=== PATIENT | male | born 1995 | race Caucasian/White ===

== ENCOUNTER 2022-10-05 05:05 | Emergency (ER) | payer BC ==
[2022-10-05] MEDS ORDERED: Pepcid 20 MG VIAL IV ONE ×2 (05:18→05:40)
[2022-10-05] MEDS ORDERED: Sodium Chloride 0.9% 1000 ML 1,000 ML IV STA (05:18)
[2022-10-05] MEDS ORDERED: PROTONIX 40 MG IV IV ONE ×2 (05:18→05:40)
[2022-10-05 05:20] VITALS: BP 122/73
--- NOTE | 2022-10-05 05:35 | ERPHSYRPT ---
- History of Present Illness Time Seen by Provider: 10/05/22 05:28 Historian: patient, family Exam Limitations: no limitations Patient Subjective Stated Complaint: pt states he has had chest pain this morning thaqt lasted 3 hours in the center of chest. pt states that after the chest pain let up he was feeling aching in the arm. pt states he has a history of hiatel hernia, but this pain felt different that the hiatel hernia pain, states he has some SOB Triage Nursing Assessment: pt is alert and oriented, states that his pain is chest is 1/10 at this time, pt is NSR on 12 lead, and on monitor. Physician History: pt had onset left chest pain radiating to shoulder this am x 3 hours but now nearly gone. Had had previous substernal diagnosed as GERD, but this is a little different. No prior CAD. No Hptn Nonsmoker. No early family Hx . no prior DVT or PE, No recent hosp or surgery, no hx cancer, but cannot perc out due to a relative and himself with an increased factor like factor V. so will check D dimer Heart score is 3 : 1 for moderately suspicious CP ( pectoral rad to shoulder/arm) 1 for family Hx 1 for EKG with early repol. 0 for age < 45 0 for neg trop Timing/Duration: today Activities at Onset: none Quality: dullness, sharpness Location: central, shoulder Chest Pain Radiation: arm Severity of Pain-Max: moderate Severity of Pain-Current: mild Modifying Factors: Improves With: nothing Associated Symptoms: denies symptoms Prior Chest Pain/Cardiac Workup: non-cardiac Nitro Today/Relief: no nitro taken today Aspirin Treatment Today: 81 mg x 4, provided by ED Allergies/Adverse Reactions: No Known Drug Allergies Allergy (Unverified 10/05/22 05:20) Hx Tetanus, Diphtheria Vaccination/Date Given: Yes Travel Risk - International Travel Have you traveled outside of the country in past 3 weeks: No - Coronavirus Screening Are you exhibiting any of the following symptoms?: No Close contact with a COVID-19 positive Pt in past 14-21 Days: No - Vaccine Status Have you recieved a Covid-19 vaccination: No - Vaccination Dates Date of 2cond Vaccination (if applicable): unknown - Review of Systems Constitutional: No Fever, No Chills Eyes: No Symptoms Ears, Nose, & Throat: No Symptoms Respiratory: No Cough, No Dyspnea Cardiac: No Chest Pain, No Edema, No Syncope Abdominal/Gastrointestinal: No Abdominal Pain, No Nausea, No Vomiting, No Diarrhea Genitourinary Symptoms: No Dysuria Musculoskeletal: No Back Pain, No Neck Pain Skin: No Rash Neurological: No Dizziness, No Focal Weakness, No Sensory Changes Psychological: No Symptoms Endocrine: No Symptoms Hematologic/Lymphatic: No Symptoms Immunological/Allergic: No Symptoms All Other Systems: Reviewed and Negative - Past Medical History Pertinent Past Medical History: Yes Other Medical History: acid reflux, hiatel hernia - Past Surgical History Past Surgical History: No - Social History Smoking Status: Never smoker Exposure to second hand smoke: No Drug Use: none Patient Lives Alone: No - Nursing Vital Signs Nursing Vital Signs: Initial Vital Signs Temperature 97.9 F 10/05/22 05:06 Pulse Rate 66 10/05/22 05:06 Respiratory Rate 18 10/05/22 05:06 Blood Pressure 122/73 10/05/22 05:06 O2 Sat by Pulse Oximetry 100 10/05/22 05:06 Pain Scale Pain Intensity 0 - Physical Exam General Appearance: no apparent distress, alert Eye Exam: PERRL/EOMI, eyes nml inspection Ears, Nose, Throat Exam: normal ENT inspection, moist mucous membranes Neck Exam: normal inspection, non-tender, supple, full range of motion Respiratory Exam: normal breath sounds, lungs clear, airway intact, No respiratory distress Cardiovascular Exam: regular rate/rhythm, normal heart sounds Gastrointestinal/Abdomen Exam: soft, No tenderness, No mass Rectal Exam: deferred Back Exam: normal inspection, No CVA tenderness, No vertebral tenderness Extremity Exam: normal inspection, normal range of motion Neurologic Exam: alert, oriented x 3, cooperative, normal mood/affect, sensation nml, No motor deficits Skin Exam: normal color, warm, dry SpO2 Interpretation: normal SpO2: 100 O2 Delivery: Room Air - Course Nursing assessment & vital signs reviewed: Yes EKG Interpreted by Me: Sinus Rhythm, NORMAL AXIS, NORMAL INTERVALS, Non-specific ST Changes, Other (early repol) - Radiology Exams Chest X-ray Interpretation: Reviewed by me, No Pneumothorax, No Infiltrates, Other (granulomata) Ordered Tests: Active Orders 24 hr Category Date Time Status EKG-ER Only STAT Care 10/05/22 05:18 Active IV Insertion STAT Care 10/05/22 05:18 Active CHEST 2 VIEWS (PA AND LAT) Stat Exams 10/05/22 05:20 Taken CBC W DIFF Stat Lab 10/05/22 05:37 Completed CMP Stat Lab 10/05/22 05:37 Completed D-DIMER QUANTITATIVE Stat Lab 10/05/22 05:48 Completed TROPONIN Q4H Lab 10/05/22 05:30 Completed TROPONIN Q4H Lab 10/05/22 09:30 Ordered TROPONIN Q4H Lab 10/05/22 13:30 Ordered Medication Summary Discontinued Medications Generic Name Dose Route Start Last Admin Trade Name Freq PRN Reason Stop Dose Admin Aspirin 324 mg 10/05/22 05:37 10/05/22 05:43 Aspirin 81 Mg Tab.Chew PO 10/05/22 05:38 324 mg STAT ONE Administration Famotidine 20 mg 10/05/22 05:18 10/05/22 05:42 Famotidine 20 Mg/1 Vial IV 10/05/22 05:19 20 mg STAT ONE Administration Famotidine Confirm 10/05/22 05:40 Famotidine 20 Mg/1 Vial Administered 10/05/22 05:41 Dose 20 mg IV .STK-MED ONE Sodium Chloride 1,000 mls @ 999 mls/hr 10/05/22 05:18 10/05/22 05:42 Sodium Chloride 0.9% 1000 Ml IV 10/05/22 06:18 999 mls/hr .Q1H1M STA Administration Sodium Chloride Confirm 10/05/22 05:41 Sodium Chloride 0.9% 1000 Ml Administered 10/05/22 05:42 Dose 1,000 mls @ ud .ROUTE .STK-MED ONE Pantoprazole Sodium 40 mg 10/05/22 05:18 10/05/22 05:42 Pantoprazole 40 Mg Vial IV 10/05/22 05:19 40 mg STAT ONE Administration Pantoprazole Sodium Confirm 10/05/22 05:40 Pantoprazole 40 Mg Vial Administered 10/05/22 05:41 Dose 40 mg IV .STK-MED ONE Lab/Rad Data: Laboratory Result Diagrams 10/05/22 05:37 10/05/22 05:37 Laboratory Results 10/05/22 10/05/22 10/05/22 Range/Units 05:48 05:37 05:37 WBC 5.1 (4.0-10.5) x10^3/uL RBC 5.25 (4.1-5.6) x10^6/uL Hgb 15.4 (12.5-18.0) g/dL Hct 45.9 (42-50) % MCV 87.4 (78-100) fL MCH 29.3 (26-32) pg MCHC 33.6 (32-36) g/dL RDW 12.5 (11.5-14.0) % Plt Count 229 (150-450) x10^3/uL MPV 10.3 (7.5-11.0) fL Gran % 48.5 (36.0-66.0) % Immature Gran % (Auto) 0.2 (0.00-0.4) % Nucleat RBC Rel Count 0.0 (0.00-0.1) % Eos # (Auto) 0.18 (0-0.5) x10^3/uL Immature Gran # (Auto) 0.01 (0.00-0.03) x10^3u/L Absolute Lymphs (auto) 1.67 (1.0-4.6) x10^3/uL Absolute Monos (auto) 0.71 (0.0-1.3) x10^3/uL Absolute Nucleated RBC 0.00 (0.00-0.01) x10^3u/L Lymphocytes % 32.9 (24.0-44.0) % Monocytes % 14.0 H (0.0-12.0) % Eosinophils % 3.6 (0.00-5.0) % Basophils % 0.8 (0.0-0.4) % Absolute Granulocytes 2.46 (1.4-6.9) x10^3/uL Basophils # 0.04 (0-0.4) x10^3/uL D-Dimer < 0.19 (0.0-0.50) mg/L Sodium 137 (137-145) mmol/L Potassium 4.0 (3.5-5.1) mmol/L Chloride 106 (98-107) mmol/L Carbon Dioxide 25 (22-30) mmol/L Anion Gap 10.2 (5-15) MEQ/L BUN 14 (9-20) mg/dL Creatinine 0.78 (0.66-1.25) mg/dL Estimated GFR > 60.0 ML/MIN Glucose 100 (74-106) mg/dL Calcium 8.7 (8.4-10.2) mg/dL Total Bilirubin 0.50 (0.2-1.3) mg/dL AST 21 (17-59) U/L ALT 17 (0-50) U/L Alkaline Phosphatase 53 (38-126) U/L Troponin I (0.000-0.034) ng/mL Serum Total Protein 7.3 (6.3-8.2) g/dL Albumin 4.4 (3.5-5.0) g/dL 10/05/22 Range/Units 05:30 WBC (4.0-10.5) x10^3/uL RBC (4.1-5.6) x10^6/uL Hgb (12.5-18.0) g/dL Hct (42-50) % MCV (78-100) fL MCH (26-32) pg MCHC (32-36) g/dL RDW (11.5-14.0) % Plt Count (150-450) x10^3/uL MPV (7.5-11.0) fL Gran % (36.0-66.0) % Immature Gran % (Auto) (0.00-0.4) % Nucleat RBC Rel Count (0.00-0.1) % Eos # (Auto) (0-0.5) x10^3/uL Immature Gran # (Auto) (0.00-0.03) x10^3u/L Absolute Lymphs (auto) (1.0-4.6) x10^3/uL Absolute Monos (auto) (0.0-1.3) x10^3/uL Absolute Nucleated RBC (0.00-0.01) x10^3u/L Lymphocytes % (24.0-44.0) % Monocytes % (0.0-12.0) % Eosinophils % (0.00-5.0) % Basophils % (0.0-0.4) % Absolute Granulocytes (1.4-6.9) x10^3/uL Basophils # (0-0.4) x10^3/uL D-Dimer (0.0-0.50) mg/L Sodium (137-145) mmol/L Potassium (3.5-5.1) mmol/L Chloride (98-107) mmol/L Carbon Dioxide (22-30) mmol/L Anion Gap (5-15) MEQ/L BUN (9-20) mg/dL Creatinine (0.66-1.25) mg/dL Estimated GFR ML/MIN Glucose (74-106) mg/dL Calcium (8.4-10.2) mg/dL Total Bilirubin (0.2-1.3) mg/dL AST (17-59) U/L ALT (0-50) U/L Alkaline Phosphatase (38-126) U/L Troponin I < 0.012 (0.000-0.034) ng/mL Serum Total Protein (6.3-8.2) g/dL Albumin (3.5-5.0) g/dL - Progress Progress: improved, re-examined Air Movement: good Progress Note: 10/05/22 06:41 pt is feeling better now with symptoms essentially resolved. he relates now that when he was having the pain it was momentary and shrp for less thatn 30 seconds rather than lasting the whole 3 hours,. I discussed his Heart score being lower risk, but that this still did not completely make his risk zero ( there still could be undetected cardiac or cardiovascular disease with risk of TX and/or ) and that he could stay and be observed if he wished in hospital but he is comfortable for DC and outpt f/u and chooses that and has the capacity with normal mental status to make that choice. Blood Culture(s) Obtained: No Antibiotics given: No Counseled pt/family regarding: lab results, diagnosis, need for follow-up, rad results - Departure Departure Disposition: Home Clinical Impression: chest pain resolved Condition: Good Critical Care Time: No Referrals: SOLOMON PIPER MD [Primary Care Provider] - Follow up/PCP as directed Instructions: Chest Pain (DC) Additional Instructions: followup with your to arrange further cardiac workup since although your score is low and risk is low , there still could be some condition, and return meantime if any further symptoms of concern. Avoid heavy exertion and sports until workup is completed.
[2022-10-05] MEDS ORDERED: BABY ASPIRIN 81 MG CHEW PO ONE (05:37)
[2022-10-05 05:40] LABS: Absolute Neutrophil Ct (ANC) 2.46 x10^3/uL (1.4-6.9); Basophil (Absolute #) 0.04 x10^3/uL (0-0.4); Eosinophil % 3.6 % (0.00-5.0); Eosinophil (Absolute #) 0.18 x10^3/uL (0-0.5); Hematocrit 45.9 % (42-50); Hemoglobin 15.4 g/dL (12.5-18.0); Lymphocyte (Absolute #) 1.67 x10^3/uL (1.0-4.6); Lymphocytes % 32.9 % (24.0-44.0); Mean Cell Volume 87.4 fL (78-100); Mean Corpuscular Hemoglobin 29.3 pg (26-32); Mean Corpuscular Hgb Concent. 33.6 g/dL (32-36); Mean Platelet Volume 10.3 fL (7.5-11.0); Monocyte (Absolute #) 0.71 x10^3/uL (0.0-1.3); Neutrophil % 48.5 % (36.0-66.0); Platelet Count 229 x10^3/uL (150-450); Red Blood Count 5.25 x10^6/uL (4.1-5.6); Red Cell Distribution Width 12.5 % (11.5-14.0); White Blood Count 5.1 x10^3/uL (4.0-10.5)
[2022-10-05] MEDS ORDERED: Sodium Chloride 0.9% 1000 ML 1,000 ML ONE (05:41)
[2022-10-05 05:54] LABS: ALBUMIN 4.4 g/dL (3.5-5.0); ALKALINE PHOSPHATASE 53 U/L (38-126); ANION GAP 10.2 MEQ/L (5-15); BLOOD UREA NITROGEN 14 mg/dL (9-20); CHLORIDE 106 mmol/L (98-107); Calcium 8.7 mg/dL (8.4-10.2); Carbon Dioxide 25 mmol/L (22-30); Creatinine 1 0.78 mg/dL (0.66-1.25); EST GLOMERULAR FILTRATION RATE > 60.0 ML/MIN; Glucose 100 mg/dL (74-106); SGOT/AST 21 U/L (17-59); SGPT/ALT 17 U/L (0-50); SODIUM 137 mmol/L (137-145); Total Protein 7.3 g/dL (6.3-8.2)
[2022-10-05 06:17] VITALS: PULSE 60
[2022-10-05 06:41] VITALS: O2SAT 100
--- NOTE | 2022-10-05 08:12 | XRAY ---
Indication: Chest pain and short of breath. Comparison: None PA/lateral chest demonstrates normal heart and lungs. Bony thorax intact with minimal dextroscoliosis.
== END 2022-10-05 07:03 | disposition home or self-care (01) ==
LOC: ED 05:05
DX: R07.9 Chest pain, unspecified (principal); Z28.310 Unvaccinated for COVID-19
CPT/HCPCS: 36000; 36415; 71046; 80053; 84484; 85025; 85379; 93005; 96374; 96375; 99284; A9270-GY